=== PATIENT | female | born 1985 | race African-American/Black ===

== ENCOUNTER 2017-08-07 08:47 | Day surgery (SDC) | payer OTHER ==
[~2017-08-07] VITALS: Ht 157.5 cm; Wt 53.8 kg
[2017-08-07 09:27] VITALS: BP 115/94; PULSE 70; TEMP 97
[2017-08-07 09:43] LABS: HCG-QUALITATIVE URINE NEGATIVE
[2017-08-07 10:00] VITALS: BP 105/70; PULSE 56
[2017-08-07 10:35] VITALS: BP 110/81; PULSE 66; TEMP 97.3
[2017-08-07 10:45] VITALS: BP 105/74; PULSE 57
[2017-08-07 14:21] VITALS: BP 93/59; PULSE 65
[2017-08-12 12:20] LABS: PATHOLOGY PLS
== END 2017-08-07 11:25 | disposition home or self-care (01) ==
LOC: SDCO 08:47
PROVIDERS: Internal Medicine Gastroenterology
DX: K51.211 Ulcerative (chronic) proctitis with rectal bleeding (principal); K92.1 Melena
CPT/HCPCS: J2250; J3010; J7030

== ENCOUNTER 2018-05-14 22:46 | Inpatient (IN) | payer OTHER ==
[~2018-05-14] VITALS: Ht 154.9 cm; Wt 71.4 kg
[2018-05-14 23:00] VITALS: BP 128/82; PULSE 76; TEMP 98.2
[2018-05-14] MEDS ORDERED: APRISO0.375 GM PO ×3 (23:05→23:23)
[2018-05-14] MEDS ORDERED: PRENATA1 CTB PO (23:08)
[2018-05-14] MEDS ORDERED: OSCAL 500 TAB500 MG PO (23:08)
[2018-05-14 23:10] VITALS: BP 128/82; PULSE 76; TEMP 98.2
[2018-05-15] VITALS (39 sets, daily range): BP systolic 94–148; BP diastolic 55–92; PULSE 69–110; TEMP 97.7–98.1
[2018-05-15 00:01] LABS: BASO % 0.3 % (0.0-2.0); EOS # 0.1 (0.0-0.7); GRAN # 6.8 (1.4-6.5); GRAN % 67.9 % (42.2-75.2); HEMATOCRIT 39.4 % (37.0-47.0); HEMOGLOBIN 13.4 g/dl (12.5-16.0); LYMPH # 2.1 (1.2-3.4); LYMPH % 21.1 % (20.0-51.0); MEAN CELL VOLUME 90 fl (80.0-100.0); MEAN CORPUSCULAR HEMOGLOBIN 31 pg (27.0-31.0); MEAN CORPUSCULAR HGB CONC 34 g/dl (33.0-37.0); MEAN PLATELET VOLUME 9.9 fl (7.4-10.4); MONO # 0.9 (0.1-0.6); MONO % 9.1 % (1.7-9.3); PLATELET COUNT 222 K/mm3 (130-400); RED BLOOD COUNT 4.39 M/mm3 (4.10-5.30); REDCELL DISTRIBUTION WIDTH-CV 13.3 % (11.5-14.5)
[2018-05-16 07:00] VITALS: BP 100/67; PULSE 80; TEMP 97.9
[2018-05-16 16:00] VITALS: BP 119/78; PULSE 100; TEMP 97.6
[2018-05-16 19:30] VITALS: BP 121/82; PULSE 91; TEMP 97.4
[2018-05-17 07:15] VITALS: BP 110/71; PULSE 107; TEMP 98.6
[2018-05-17] MEDS ORDERED: IBU800 M1 PO (08:18)
[2018-05-17 16:00] VITALS: BP 115/80; PULSE 82; TEMP 97.9
== END 2018-05-17 17:40 | disposition home or self-care (01) | DRG 775 ==
LOC: LDRO 22:46 → OB 22:47 → LDR 22:47 → OB 05-15 13:29
PROVIDERS: Obstetrics & Gynecology
PROC: 10E0XZZ Delivery of Products of Conception, External Approach (ICD-10-PCS; principal; 2018-05-15)
PROC: 0KQM0ZZ Repair Perineum Muscle, Open Approach (ICD-10-PCS; 2018-05-15)
DX: O60.14X0 Preterm labor third trimester with preterm delivery third trimester, not applicable or unspecified (principal); K51.20 Ulcerative (chronic) proctitis without complications; O99.613 Diseases of the digestive system complicating pregnancy, third trimester; O69.81X0 Labor and delivery complicated by cord around neck, without compression, not applicable or unspecified; O70.1 Second degree perineal laceration during delivery; Z3A.36 36 weeks gestation of pregnancy; Z37.0 Single live birth
CPT/HCPCS: J2590; J2795; J7120

== ENCOUNTER 2020-07-28 15:52 | Inpatient (IN) | payer OTHER ==
[2020-07-28] VITALS (15 sets, daily range): BP systolic 110–137; BP diastolic 61–90; PULSE 64–108; TEMP 97.9–98.4
[~2020-07-28] VITALS: Ht 154.9 cm; Wt 76.4 kg
[~2020-07-28 15:52] MED LIST: APRISO0.375 GM PO; IBU800 M1 PO; OSCAL 500 TAB500 MG PO; PRENATA1 CTB PO
--- NOTE | 2020-07-28 15:55 | NUR ---
Pt arrives on unit ambulatory. States increase of ctx with intensity and frequency since 1300. Denies LOF and vaginal bleeding. Reports GFM. Breathing through ctx. Changed into clean gown. EFM and toco applied. Deep variable noted into the 90s with ctx. VSS. Dr. Lowe notified. Reviewed FHR x6 minutes with recurrent late variables. Orders for IV fluids and continue to monitor. IV started in RH. Labs drawn. LR infusing. Admission assessment completed. 1621-Dr. Lowe notified of recurrent late decelerations with minimal variability and tachycardia in the 170s. Requested to review FHR and assess on unit. 1625-Dr. Lowe calling back with review of FHR strip. Orders for emergency C/S due to non-reasurring FHTs. Pt prepped for delivery. Anesthesia notified. 1629-Pt taken off monitors to OR. 1630-EFM in OR. FHR in the 90s. Pt sitting upright for delivery. 1644-Cord gasses drawn. Placenta sent to pathology.
[2020-07-28 16:57] LABS: BASO % 0.2 % (0.0-2.0); EOS # 0.2 (0.0-0.7); EOS % 1.7 % (0-4.0); GRAN # 7.5 (1.4-6.5); GRAN % 73.3 % (42.2-75.2); HEMOGLOBIN 12.6 g/dl (12.5-16.0); LYMPH # 1.6 (1.2-3.4); MEAN CELL VOLUME 86 fl (80.0-100.0); MEAN CORPUSCULAR HEMOGLOBIN 30 pg (27.0-31.0); MEAN CORPUSCULAR HGB CONC 35 g/dl (33.0-37.0); MONO # 0.8 (0.1-0.6); PLATELET COUNT 322 K/mm3 (130-400); RED BLOOD COUNT 4.23 M/mm3 (4.10-5.30); REDCELL DISTRIBUTION WIDTH-CV 12.5 % (11.5-14.5)
[2020-07-28 16:59] LABS: HEMATOCRIT 36.5 % (37.0-47.0)
[2020-07-28 17:11] LABS: UMBILICAL ARTERY ABG PCO2 63.6 mmHg (30-65)
[2020-07-28 17:13] LABS: UMBILICAL ARTERY ABG pH 7.15 (7.28-7.45)
--- NOTE | 2020-07-28 18:50 | NUR ---
1849 VERY UNCOMFORTABLE WITH CRAMPING. RATES PAIN 04/30. PERCOCET X2 PO GIVEN WITH LITTLE RELIEF. BABY TO BREAST.
--- NOTE | 2020-07-28 20:10 | NUR ---
2009 C/O INC PAIN AND CRAMPS 04/30. MORPHINE 2 MG IVP GIVEN, 2019 FEELING BETTER. MOVED FROM SIDE TO SIDE FOR PERICARE AND ABD BINDER ON. DANIEL FAIR.
[2020-07-29 04:00] VITALS: BP 106/61; PULSE 67; TEMP 97.7
[2020-07-29 06:46] VITALS: BP 105/68; PULSE 70; TEMP 97.4
[2020-07-29 15:29] VITALS: BP 113/85; PULSE 74; TEMP 97.9
[2020-07-29 19:30] VITALS: BP 115/69; PULSE 84; TEMP 97.5
[2020-07-30 07:16] VITALS: BP 107/70; PULSE 86; TEMP 97.5
[2020-07-30] MEDS ORDERED: PERCOCET 325 MG1 TA2 PO (09:05)
[2020-07-30] MEDS ORDERED: IBU800 M1 PO (09:05)
--- NOTE | 2020-07-30 09:09 | NUR ---
Initial visit; Patient thanked Terminal Gauger for offering congratulations and God's blessings for the of her daugher. Terminal Gauger thanked mom for choosing [facility].
[2020-07-30 16:53] VITALS: BP 111/72; PULSE 87; TEMP 98.3
--- NOTE | 2020-07-30 17:30 | NUR ---
PT EDUCATED ON BILIRUBIN RESULTS. SHE REQUESTS TO TRY AND PUMP AFTER FEEDINGS TO HELP SUPPLEMENT. BREAST PUMP TAKEN TO ROOM AND EDUCATION PROVIDED.
[2020-07-30 19:37] VITALS: BP 115/76; PULSE 94; TEMP 98.1
[2020-07-31 07:41] VITALS: BP 106/69; PULSE 106; TEMP 97.7
== END 2020-07-31 11:30 | disposition home or self-care (01) | DRG 788 ==
LOC: LDRO 15:52 → OB 16:39
PROVIDERS: ADMIT Obstetrics & Gynecology
PROC: 10D00Z1 Extraction of Products of Conception, Low, Open Approach (ICD-10-PCS; principal; 2020-07-28)
DX: O76 Abnormality in fetal heart rate and rhythm complicating labor and delivery (principal); O77.0 Labor and delivery complicated by meconium in amniotic fluid; Z3A.38 38 weeks gestation of pregnancy; Z37.0 Single live birth
CPT/HCPCS: J0690; J1885; J2270; J2370; J2405; J2590; J3010; J7120